=== PATIENT | female | born 1985 | race Caucasian/White ===

== ENCOUNTER 2018-07-26 05:25 | Day surgery (SDC) | payer BC ==
[2018-07-25 14:14] VITALS: BMI 28.7
--- NOTE | 2018-07-26 07:05 | HP ---
History & Physical Update - History History: No Change - Physical Physical: No Change - Assessment Assessment: No Change - Plan Plan: No Change
[2018-07-26] MEDS ORDERED: MIDAZOLAM HCL 2 MG/2 ML SINGLE DOSE VIAL ONE (07:25)
[2018-07-26] MEDS ORDERED: DEXAMETHASONE SOD PHOSPHATE 4 MG/1 ML VIAL ONE (07:39)
[2018-07-26] MEDS ORDERED: LIDOCAINE HCL/PF 2% SDV 5ML VIAL ONE (07:39)
[2018-07-26] MEDS ORDERED: PROPOFOL 20 ML ONE (07:41)
[2018-07-26] MEDS ORDERED: ceFAZolin SODIUM 1 GM VIAL ONE (07:48)
[2018-07-26] MEDS ORDERED: OXYTOCIN 10 UNITS/ML VIAL ONE (07:51)
[2018-07-26] MEDS ORDERED: ONDANSETRON 4 MG/2 ML VIAL IVPUSH PRN ×2 (08:10→08:48)
[2018-07-26] MEDS ORDERED: oxyCODONE HCL 5 MG TABLET PO PRN ×2 (08:10→08:48)
[2018-07-26] MEDS ORDERED: LACTATED RINGERS SOLUTION 1,000 ML IV SCH (08:15)
[2018-07-26 08:40] VITALS: TEMP 96.5
[2018-07-26] MEDS ORDERED: IBUPROFEN 600 MG TABLET (FP) PO PRN (08:48)
[2018-07-26] MEDS ORDERED: IBUPROFEN 800 MG/8 ML IJ IVPB PRN (08:48)
[2018-07-26] MEDS ORDERED: ELECTROLYTE-148 SOLN 1,000 ML IV SCH (09:00)
[2018-07-26 09:32] VITALS: BP 111/64; PULSE 58
--- NOTE | 2018-07-26 22:45 | OP ---
DATE OF OPERATION: 07/26/2018 PREOPERATIVE DIAGNOSIS: Missed . POSTOPERATIVE DIAGNOSIS: Missed . PROCEDURE: Suction and dilatation and curettage. SURGEON: Suman Gaines MD ANESTHESIA: General. ANESTHESIOLOGIST: Rene Whyte MD ESTIMATED BLOOD LOSS: 50 mL. OPERATION: Patient was taken to the operating room and under adequate general anesthesia in dorsal lithotomy position. Examination under anesthesia revealed external genitalia to be normal. Vagina small amount of vaginal bleeding noted. Cervix was closed and bleeding from the os. Uterus was enlarged approximately 8-weeks size, and no masses were palpable. Then, with the weighted speculum in the vagina, anterior lip of cervix was grasped with single-toothed tenaculum and then uterine cavity was sounded to 9 cm. Cervix was gradually dilated with Hegar dilator, and suction curette was inserted, and the contents were suctioned. Patient tolerated the procedure well, left the OR in good condition. SUMAN GAINES M.D. [id number]
--- NOTE | 2018-07-29 16:34 | PATH ---
Surgical Pathology Report Patient Name: VERONICA CAMPOS [facility]. Rec. #: [id number] /Age/Gender: 1985 (Age: 32) / F Account: [id number] Location: [facility] SURGICAL Taken: 07/26/2018 Received: 07/26/2018 Reported: 07/29/2018 Physicians: Suman Gaines M.D. Specimen(s) Received PRODUCTS OF CONCEPTION Clinical History Missed Final Diagnosis PRODUCTS OF CONCEPTION, DILATION AND CURETTAGE: IMMATURE CHORIONIC VILLI WITH FOCAL HYDROPIC CHANGE CONSISTENT WITH PRODUCTS OF CONCEPTION. Electronically Signed Mica Borja M.D. Gross Description Received in formalin labeled "products of conception," is a 7.5 x 6.5 x 0.3 cm aggregate of cat-red soft tissue fragments. Villous tissues identified. No somatic tissues identified. A branch service representative portion is submitted in one cassette. /07/26/2018 saudi07/26/2018
== END 2018-07-26 09:33 | disposition home or self-care (01) ==
LOC: JASU-SURG 05:25 → MERGE 07:30 → JASU-SURG 09:33
PROVIDERS: ATTEND Obstetrics & Gynecology
PROC: 10D17ZZ Extraction of Products of Conception, Retained, Via Natural or Artificial Opening (ICD-10-PCS; principal; 2018-07-26 07:30)
DX: O02.1 Missed abortion (principal)
CPT/HCPCS: 88305-TC; 94760

== ENCOUNTER 2019-06-02 16:00 | Inpatient (IN) | payer BC ==
[2019-06-02 17:06] VITALS: BMI 34.7
--- NOTE | 2019-06-02 17:26 | PN ---
Progress Note (short form) - Note Progress Note: Per primary provider's request, cervidil placed. Cervix 25/2/-3. Intact. Cat Mukesh Auguste MD
[2019-06-02] MEDS ORDERED: DINOPROSTONE 10 MG VAGINAL SUPPOSITORY VG ONE (18:30)
[2019-06-02] MEDS ORDERED: BUTORPHANOL TARTRATE 1 MG/ML VIAL IVPUSH PRN (19:31)
--- NOTE | 2019-06-02 19:37 | HP ---
Past Medical History - Primary Care Physician PCP:: Suman Gaines - Admission Chief Complaint: 40.1 weeks, for cervidil induction History of Present Illness: 33 yo f 021 , 40.1 weeks,requesting induction of labor , risks associated with induction discussed , cx 2 cm 25 vx -3 mi, fhr cat 1, irregular contraction History Source: Patient Limitations to Obtaining History: No Limitations - Past Medical History ...: 4 ...Para: 1 ...Term: 1 ...: 0 ...Spon : 1 ...Induced : 0 ...Multiple Gestation: 0 ...LMP: 08/25/18 ... Weeks Gestation by Dates: 40.1 ...EDC by Dates: 06/01/19 - Past Surgical History Past Surgical History: Yes: None Hx Myomectomy: No Hx Transabdominal Cerclage: No - Smoking History Smoking history: Unknown if ever smoked Have you smoked in the past 12 months: No Aproximately how many cigarettes per day: 0 If you are a former smoker, when did you quit?: 2010 - Alcohol/Substance Use Hx Alcohol Use: No - Social History Usual Living Arrangement: Yes: With Spouse History of Recent Travel: No Home Medications - Allergies Allergies/Adverse Reactions: Allergies Allergy/AdvReac Type Severity Reaction Status Date / Time No Known Allergies Allergy Verified 06/02/19 16:33 - Home Medications Home Medications: Ambulatory Orders Vitamins (Sjr) - 1 tab PO DAILY 10/07/14 Review of Systems - Review of Systems Constitutional: reports: No Symptoms Eyes: reports: No Symptoms HENT: reports: No Symptoms Neck: reports: No Symptoms Cardiovascular: reports: No Symptoms Respiratory: reports: No Symptoms Gastrointestinal: reports: No Symptoms Genitourinary: reports: No Symptoms Breasts: reports: No Symptoms Reported Integumentary: reports: No Symptoms Neurological: reports: No Symptoms Endocrine: reports: No Symptoms Hematology/Lymphatic: reports: No Symptoms Psychiatric: reports: No Symptoms Physical Exam - Maternity Vital Signs: Vital Signs Temperature 98 F 06/02/19 18:00 Pulse Rate 72 06/02/19 18:00 Respiratory Rate 20 06/02/19 18:00 Blood Pressure 117/65 06/02/19 18:00 O2 Sat by Pulse Oximetry (%) Constitutional: Yes: Well Nourished, No Distress, Calm Eyes: Yes: WNL, Conjunctiva Clear, EOM Intact HENT: Yes: WNL, Atraumatic, Normocephalic Neck: Yes: WNL, Supple, Trachea Midline Cardiovascular: Yes: WNL, Regular Rate and Rhythm Breast(s): Yes: WNL - Abdominal Exam/OB Fundal Height: 40 Number of Fetuses: Single Presentation: Vertex Contractions: Yes Regularity: Irregular Monitor Mode: External Heart Rate Location: [facility] Category: I Accelerations: Uniform Decelerations: None - Vaginal Exam/OB Vaginal Bleediing: No Speculum Exam: No Dilatation (cm): 2 cm Effacement (%): 25 Amniotic Membrane Status: Intact Presentation: Vertex/Position Station: -3 - Physical Exam Extremities: Yes: WNL Edema: Yes Edema: LLE: Trace, RLE: Trace Deep Tendon Reflex Grade: Normal +2 ...Motor Strength: WNL Psychiatric: Yes: WNL Hemorrhage Risk Assessment - Risk Factors Medium Risk Factors: Yes: None High Risk Factors: Yes: None Risk Score: 1 Risk Level: Medium Risk Problem List - Problems (1) Post term over 40 weeks Code(s): O48.0 - POST-TERM Assessment/Plan risks associated with induction has explained to patient , ulternatives and expectant management discussed , [facility] pain management
[2019-06-02 20:32] LABS: BASO % 0.5 % (0-2.0); EOS % 0.5 % (0-4.5); HEMATOCRIT 31.7 % (32.4-45.2); HEMOGLOBIN 10.7 GM/dL (10.7-15.3); LYMPH % 17.2 % (8-40); MCH 27.9 pg (25.7-33.7); MCHC 33.6 g/dl (32.0-36.0); MEAN CELL VOLUME 82.9 fl (80-96); MONO % 5.1 % (3.8-10.2); NEUT % 76.7 % (42.8-82.8); PLATELET COUNT 262 K/MM3 (134-434); RBC 3.82 M/mm3 (3.60-5.2); RDW 14.7 % (11.6-15.6); WHITE BLOOD COUNT 12.1 K/mm3 (4.0-10.0)
[2019-06-02 20:47] LABS: BLOOD UREA NITROGEN 8.3 mg/dL (7-18); CALCIUM 8.5 mg/dL (8.5-10.1); CREATININE 0.5 mg/dL (0.55-1.3); POTASSIUM 3.5 mmol/L (3.5-5.1)
[2019-06-02 21:13] LABS: INR 0.97 (0.83-1.09); PROTHROMBIN TIME (PATIENT) 11.4 SEC (9.7-13.0)
[2019-06-02 21:16] LABS: ACTIVATED PTT 30.4 SECONDS (25.2-36.5)
[2019-06-02] MEDS ORDERED: AMPICILLIN SODIUM 2 GM VIAL ONE (23:35)
[2019-06-03] MEDS ORDERED: AMPICILLIN - 2 GM in SODIUM CHLORIDE 100 ML IVPB ONE
[2019-06-03] MEDS ORDERED: PROMETHAZINE HCL 25 MG/1 ML VIAL IVPB ONE (01:00)
[2019-06-03] MEDS ORDERED: DEXTROSE 5%-LACTATED RINGERS 1,000 ML IV SCH ×2 (01:00→07:00)
[2019-06-03] MEDS ORDERED: PROMETHAZINE HCL 25 MG/1 ML VIAL ONE (03:46)
[2019-06-03] MEDS ORDERED: BUTORPHANOL TARTRATE 2 MG/ML VIAL ONE (03:46)
[2019-06-03] MEDS ORDERED: AMPICILLIN SODIUM 1 GM VIAL ONE ×3 (03:47→12:00)
[2019-06-03] MEDS: AMPICILLIN - 1 GM in SODIUM CHLORIDE 100 ML IVPB SCH ×4 (04:30→19:38)
[2019-06-03] MEDS ORDERED: OXYTOCIN 30 UNITS in 0.9% NS 30 UNIT/500 ML INFUS.BAG IVPB SCH (07:00)
--- NOTE | 2019-06-03 08:08 | PN ---
Progress Note (short form) - Note Progress Note: cx 2 cm, 70 vx -2 mi, fhr cat 1, advised pitocin , Problem List - Problems (1) Post term over 40 weeks Code(s): O48.0 - POST-TERM
[2019-06-03] MEDS ORDERED: OXYTOCIN 30 UNITS in 0.9% NS 30 UNIT/500 ML INFUS.BAG IVPB ONE (08:22)
[2019-06-03] MEDS ORDERED: FENTANYL/BUPIVACAINE/NS/PF - PCEA - 50 ML DISP.SYRIN EP ONE (10:41)
[2019-06-03] MEDS ORDERED: FENTANYL/BUPIVACAINE/NS/PF - PCEA - 50 ML DISP.SYRIN EP SCH (11:30)
[2019-06-03] MEDS ORDERED: BUPIVACAINE HCL/PF 0.25% (2.5MG/ML) 10 ML VIAL ONE (13:31)
[2019-06-03] MEDS ORDERED: METHYLERGONOVINE MALEATE 0.2 MG/1 ML AMP IM PRN (13:34)
[2019-06-03] MEDS ORDERED: BISACODYL 10 MG SUPP.RECT RC PRN (13:34)
[2019-06-03] MEDS ORDERED: ACETAMINOPHEN 325 MG TABLET (FP) PO PRN (13:34)
[2019-06-03] MEDS ORDERED: WITCH HAZEL 50% (TUCKS) 40 PAD/JAR PAD TP PRN (13:34)
[2019-06-03] MEDS ORDERED: BENZOCAINE 28 GM HEMORRHOIDAL OINTMENT TP PRN (13:34)
[2019-06-03] MEDS ORDERED: BENZOCAINE 20% 57 GM BOTTLE TP PRN (13:34)
--- NOTE | 2019-06-03 13:34 | PN ---
Progress Note (short form) - Note Progress Note: cx 5 cm, 80 vx -1 , had srom at 1250 pm, clear fluid , occasional variable decl with contraction, good LT side , o2, revaluate Problem List - Problems (1) Post term over 40 weeks Code(s): O48.0 - POST-TERM
[2019-06-03] MEDS ORDERED: OXYTOCIN 20 UNITS in 0.9% NS 20 UNIT/1,000 ML INFUS.BAG IV SCH (13:45)
[2019-06-03] MEDS ORDERED: ELECTROLYTE-148 SOLN 1,000 ML IV SCH (14:00)
[2019-06-03 14:22] LABS: ARTERIAL BLD GAS O2 SATURATION 44.5 % (95-98); ARTERIAL BLOOD GAS BASE EXCESS -2.5 meq/l (-2-2); ARTERIAL BLOOD GAS PCO2 49.8 mmHg (35-45)
[2019-06-03 14:25] LABS: VENOUS PC02 38.2 mmHg (41-51)
[2019-06-03 14:39] LABS: ARTERIAL BLOOD GAS pH 7.31 (7.35-7.45)
[2019-06-03 14:40] LABS: ARTERIAL BLOOD GAS PO2 23.2 mmHg (80-105)
[2019-06-03 14:41] LABS: VENOUS PO2 29.3 mmHg (30-40)
[2019-06-03 14:42] LABS: VENOUS PH 7.38 (7.31-7.41)
--- NOTE | 2019-06-03 19:38 | PN ---
Delivery - Delivery Vaginal Delivery: Spontaneous (head delivered , no cord, ant. 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
[2019-06-03] MEDS: IBUPROFEN 600 MG TABLET (FP) PO PRN (20:23)
[2019-06-03] MEDS: FERROUS SO4 325 MG TABLET (FP) PO SCH (21:22)
[2019-06-04 07:43] LABS: BASO % 0.7 % (0-2.0); EOS % 0.2 % (0-4.5); HEMATOCRIT 32.9 % (32.4-45.2); HEMOGLOBIN 10.9 GM/dL (10.7-15.3); MCHC 33.2 g/dl (32.0-36.0); MEAN CELL VOLUME 84.3 fl (80-96); MONO % 6.9 % (3.8-10.2); NEUT % 79.2 % (42.8-82.8); PLATELET COUNT 285 K/MM3 (134-434); RBC 3.91 M/mm3 (3.60-5.2); RDW 15.1 % (11.6-15.6); WHITE BLOOD COUNT 14.4 K/mm3 (4.0-10.0)
--- NOTE | 2019-06-04 08:27 | PN ---
Post Progress Note - Subjective Subjective: Patient without acute complaints. Reports tolerating oral intake without nausea or vomiting. Ambulating without dizziness. Denies fevers or chills. Pain well controlled with oral pain medication. Pumping/breast feeding without issue. Passing flatus, no BM. Post Day: 1 Type of Delivery: Vital Signs: Vital Signs Temperature 97.6 F 06/04/19 04:00 Pulse Rate 72 06/04/19 04:00 Respiratory Rate 18 06/04/19 04:00 Blood Pressure 105/62 06/04/19 04:00 O2 Sat by Pulse Oximetry (%) 99 06/03/19 14:45 Breast Exam: Yes: Soft Uterus: Yes: Fundus Firm, Fundus below umbilicus, Non-tender Abdomen/GI: Yes: Abdomen soft, Tolerating PO Lochia: Yes: Rubra Lochia, amount: Small Extremities: Yes: Calves non-tender Perineum: Yes: Intact Activity: Ambulating - Labs Labs: CBC WBC 14.4 K/mm3 (4.0-10.0) H 06/04/19 06:00 RBC 3.91 M/mm3 (3.60-5.2) 06/04/19 06:00 Hgb 10.9 GM/dL (10.7-15.3) 06/04/19 06:00 Hct 32.9 % (32.4-45.2) 06/04/19 06:00 MCV 84.3 fl (80-96) 06/04/19 06:00 MCH 28.0 pg (25.7-33.7) 06/04/19 06:00 MCHC 33.2 g/dl (32.0-36.0) 06/04/19 06:00 RDW 15.1 % (11.6-15.6) 06/04/19 06:00 Plt Count 285 K/MM3 (134-434) 06/04/19 06:00 MPV 8.0 fl (7.5-11.1) 06/04/19 06:00 Absolute Neuts (auto) 11.4 K/mm3 (1.5-8.0) H 06/04/19 06:00 Neutrophils % 79.2 % (42.8-82.8) 06/04/19 06:00 Lymphocytes % 13.0 % (8-40) D 06/04/19 06:00 Monocytes % 6.9 % (3.8-10.2) 06/04/19 06:00 Eosinophils % 0.2 % (0-4.5) 06/04/19 06:00 Basophils % 0.7 % (0-2.0) 06/04/19 06:00 Nucleated RBC % 0 % (0-0) 06/04/19 06:00 Assessment/Plan 33yo P2 s/p , doing well stable, afebrile. Asymptomatic for anemia. care instructions reviewed. Continue routine care. Ambulation encouraged Discharge instruction reviewed.
--- NOTE | 2019-06-04 08:30 | DS ---
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 Vital Signs: Vital Signs Temperature 97.6 F 06/04/19 04:00 Pulse Rate 72 06/04/19 04:00 Respiratory Rate 18 06/04/19 04:00 Blood Pressure 105/62 06/04/19 04:00 O2 Sat by Pulse Oximetry (%) 99 06/03/19 14:45 Constitutional: Yes: Well Nourished, No Distress, Calm Eyes: Yes: WNL, Conjunctiva Clear HENT: Yes: WNL, Atraumatic, Normocephalic Neck: Yes: WNL, Supple, Trachea Midline Cardiovascular: Yes: WNL, Regular Rate and Rhythm Respiratory: Yes: WNL, Regular, CTA Bilaterally Gastrointestinal: Yes: WNL, Normal Bowel Sounds, Soft ...Rectal Exam: Yes: Deferred Renal/: Yes: WNL Internal Exam Deferred: Yes ....Post : Yes: Uterus firm, Uterus non-tender Breast(s): Yes: WNL Musculoskeletal: Yes: WNL Extremities: Yes: WNL Edema: No Integumentary: Yes: WNL Neurological: Yes: WNL, Alert, Oriented ...Motor Strength: WNL Psychiatric: Yes: WNL, Alert, Oriented Labs: CBC, BMP 06/04/19 06:00 06/02/19 20:00 Delivery - Delivery Vaginal Delivery: No Problems, Spontaneous (head delivered , no cord, ant. 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: No Gender: Female Weight: 3.062 kg Position: Left, OA Total Hours ROM (Hrs/Mins): 33 mins - 1 Minute Total Score: 8 5 Minutes Total Score: 9 - [place] Feeding Plan Initial Plan: Elected not to breastfeed exclusively throughout hospitalization Discharge Summary Reason For Visit: INDUCTION OF LABOR Current Active Problems Post term over 40 weeks (Acute) Procedures: Principal: Other Procedures: Labor induction Hospital Course: Normal delivery and course Condition: Good - Instructions Diet, Activity, Other Instructions: Physical activity Resume your normal everyday activity as tolerated no heavy lifting or exercise until seen by your surgeon. You may walk unlimited gentry of and climb stairs. You may resume driving the car when you feel safe and comfortable behind the wheel. No sexual activity as instructed. Wound care If you have a bandage, leave it on, and keep dry for 48-72 hours. After that time discard the outer bandage. If they are tapes on the skin under the out of bandage leave them in place. They will peel off in the next 7 to 10 days. Do Not Peel them off. You may shower the day after surgery. If there are tapes present on the skin, you may shower over them. Diet There are no dietary restrictions. Eat healthy, high-fiber foods. Drink 6 to 8 glasses of liquid each day. This will assist in keeping your bowels are regular. Pain management You may take Tylenol or acetaminophen or Ibuprofen (for example, Motrin, Advil etc.) from my pain prescription medication is ordered should be taken as prescribed for moderate to severe pain. Call MD for any of the following: Severe pain not relieved by medication Fever of 101 or higher Excessive bleeding or drainage on dressing Inability to urinate Referrals: Suman Gaines MD [Staff Physician] - Disposition: HOME - Home Medications Comprehensive Discharge Medication List: Ambulatory Orders Vitamins (Sjr) - 1 tab PO DAILY 10/07/14
[2019-06-04] MEDS: PRENATAL VITAMINS W/ FOLIC ACID TABLET (FP) PO SCH (10:32)
[2019-06-04] MEDS: FERROUS SO4 325 MG TABLET (FP) PO SCH ×2 (10:32→21:24)
[2019-06-04] MEDS: IBUPROFEN 600 MG TABLET (FP) PO PRN ×2 (12:22→19:46)
[2019-06-04] MEDS ORDERED: SENNOSIDES/DOCUSATE COMBO (SENNA PLUS) TABLET (UD) PO PRN (22:00)
[2019-06-04 22:39] VITALS: TEMP 98.8
[2019-06-05] MEDS: IBUPROFEN 600 MG TABLET (FP) PO PRN (07:20)
--- NOTE | 2019-06-05 07:40 | PN ---
Post Progress Note - Subjective Subjective: Patient without acute complaints. Reports tolerating oral intake without nausea or vomiting. Ambulating without dizziness. Denies fevers or chills. Pain well controlled with oral pain medication. without difficulty. Passing flatus. Post Day: 2 Type of Delivery: Vital Signs: Vital Signs Temperature 98.8 F 06/04/19 22:00 Pulse Rate 66 06/04/19 22:00 Respiratory Rate 18 06/04/19 22:00 Blood Pressure 116/63 06/04/19 22:00 O2 Sat by Pulse Oximetry (%) 99 06/03/19 14:45 Breast Exam: Yes: Soft Uterus: Yes: Fundus Firm Abdomen/GI: Yes: Abdomen soft, Passing flatus, Tolerating PO. No: Abdominal Distention, Tender Lochia: Yes: Rubra Lochia, amount: Small Extremities: Yes: Calves non-tender Perineum: Yes: Laceration Activity: Ambulating - Labs Labs: CBC WBC 14.4 K/mm3 (4.0-10.0) H 06/04/19 06:00 RBC 3.91 M/mm3 (3.60-5.2) 06/04/19 06:00 Hgb 10.9 GM/dL (10.7-15.3) 06/04/19 06:00 Hct 32.9 % (32.4-45.2) 06/04/19 06:00 MCV 84.3 fl (80-96) 06/04/19 06:00 MCH 28.0 pg (25.7-33.7) 06/04/19 06:00 MCHC 33.2 g/dl (32.0-36.0) 06/04/19 06:00 RDW 15.1 % (11.6-15.6) 06/04/19 06:00 Plt Count 285 K/MM3 (134-434) 06/04/19 06:00 MPV 8.0 fl (7.5-11.1) 06/04/19 06:00 Absolute Neuts (auto) 11.4 K/mm3 (1.5-8.0) H 06/04/19 06:00 Neutrophils % 79.2 % (42.8-82.8) 06/04/19 06:00 Lymphocytes % 13.0 % (8-40) D 06/04/19 06:00 Monocytes % 6.9 % (3.8-10.2) 06/04/19 06:00 Eosinophils % 0.2 % (0-4.5) 06/04/19 06:00 Basophils % 0.7 % (0-2.0) 06/04/19 06:00 Nucleated RBC % 0 % (0-0) 06/04/19 06:00 Assessment/Plan 33 yo PPD # 2 s/p , afebrile, vital signs stable, stable for DC home today 1. Patient stable for discharge home today. 2. Patient encouraged to contact MD for: - Severe pain not controlled by oral pain medication - Fevers or chills - Nausea or vomiting, intolerance of oral intake 3. Patient to follow up in office in 4-6 weeks for visit
[2019-06-05] MEDS: PRENATAL VITAMINS W/ FOLIC ACID TABLET (FP) PO SCH (11:01)
[2019-06-05] MEDS: FERROUS SO4 325 MG TABLET (FP) PO SCH (11:02)
[2019-06-05 13:59] VITALS: BP 111/75; PULSE 74
== END 2019-06-05 12:40 | disposition home or self-care (01) | DRG 807 ==
LOC: JLDR 16:00 → J3W 06-03 15:15
PROVIDERS: ADMIT Obstetrics & Gynecology; ATTEND Obstetrics & Gynecology
PROC: 3E0P7VZ Introduction of Hormone into Female Reproductive, Via Natural or Artificial Opening (ICD-10-PCS; 2019-06-02)
PROC: 10E0XZZ Delivery of Products of Conception, External Approach (ICD-10-PCS; principal; 2019-06-03)
PROC: 0KQM0ZZ Repair Perineum Muscle, Open Approach (ICD-10-PCS; 2019-06-03)
PROC: 3E0R3BZ Introduction of Anesthetic Agent into Spinal Canal, Percutaneous Approach (ICD-10-PCS; 2019-06-03)
DX: O48.0 Post-term pregnancy (principal); Z37.0 Single live birth; O76 Abnormality in fetal heart rate and rhythm complicating labor and delivery; O70.1 Second degree perineal laceration during delivery; Z3A.40 40 weeks gestation of pregnancy
CPT/HCPCS: 36415; 36600; 59409; 80048; 82803; 85025; 85610; 85730; 86593; 86850; 86900; 86901